=== PATIENT | male | born 1940 | race Caucasian/White ===

== ENCOUNTER 2018-03-03 23:16 | Inpatient (IN) | payer MEDICARE, OTHER ==
[2018-03-03] MEDS: SOD CHLORIDE 0.9% 1,000 ML IV (23:29)
[2018-03-03 23:35] LABS: ADD MAN DIFF? NO
[2018-03-03] MEDS ORDERED: FENTAnyl 50 MCG/ML VIAL (23:37)
[2018-03-03] MEDS ORDERED: MIDAZOLAM 1 MG/ML 2 ML INJ (23:37)
[2018-03-03] MEDS ORDERED: IODIXANOL LOCM 100 ML BTL (23:37)
[2018-03-03] MEDS ORDERED: LIDOCAINE 1% (MDV) 20 ML INJ (23:37)
[2018-03-03] MEDS ORDERED: IODIXANOL LOCM 50 ML BTL (23:37)
[2018-03-03] MEDS ORDERED: NITROGLYCERIN (IC) 100 MCG/ML INJ (23:37)
[2018-03-03] MEDS ORDERED: VERAPAMIL 5 MG INJ (23:38)
[2018-03-03 23:41] LABS: WHITE BLOOD COUNT 6.1 10^3/ul (4.8-10.8)
[2018-03-03 23:41] LABS: BASOPHILS % 0.5 % (0.0-2.0); EOSINOPHILS # 0.1 10^3/ul (0.0-0.5); EOSINOPHILS % 1.8 % (0.0-7.0); HEMATOCRIT 40.1 % (42.0-52.0); LYMPHOCYTES # 1.9 10^3/ul (0.8-2.9); LYMPHOCYTES % 31.7 % (15.0-51.0); MEAN CORPUSCULAR HEMOGLOBIN 29.1 pg (29.0-33.0); MEAN CORPUSCULAR HGB CONC 32.4 g/dl (32.0-37.0); MEAN CORPUSCULAR VOLUME 89.9 fl (82.0-101.0); MEAN PLATELET VOLUME 10.3 fl (7.4-10.4); MONOCYTE # 0.5 10^3/ul (0.3-0.9); MONOCYTES % 7.7 % (0.0-11.0); NEUTROPHIL # 3.5 10^3/ul (1.6-7.5); NEUTROPHILS % 57.8 % (39.0-77.0); PLATELET COUNT 154 10^3/UL (140-415); RED BLOOD COUNT 4.46 10^6/ul (4.70-6.10); RED CELL DISTRIBUTION WIDTH 13.6 % (11.5-14.5)
[2018-03-03] MEDS ORDERED: ONDANSETRON 4 MG INJ (23:49)
[2018-03-04] LABS: INR 1.15; PROTIME 14.9 Sec (11.9-14.9); PT RATIO 1.2
[2018-03-04 00:01] LABS: ANION GAP 16 (8-16); CARBON DIOXIDE 26 mmol/L (21-31); CHLORIDE 107 mmol/L (97-110); GLUCOSE 232 mg/dl (70-220)
[2018-03-04 00:03] LABS: BLOOD UREA NITROGEN 23 mg/dl (7-20); CALCIUM 8.6 mg/dl (8.4-10.2); CREATININE 1.03 mg/dl (0.61-1.24); POTASSIUM 3.6 mmol/L (3.5-5.1); SODIUM 145 mmol/L (135-144)
[2018-03-04 00:13] LABS: B-TYPE NATRIURETIC PEPTIDE 308 PG/ML (0-450); PARTIAL THROMBOPLASTIN TIME 69.5 Sec (25.0-35.0); TROPONIN-I 0.024 ng/ml (0.00-0.12)
[2018-03-04] MEDS ORDERED: CANGRELOR TETRASODIUM/ NS 250 50 MG (00:31)
[2018-03-04] MEDS ORDERED: IODIXANOL LOCM 100 ML BTL (00:45)
[2018-03-04] MEDS ORDERED: DOPamine-D5W 1.6 MG/ML 250 ML (00:48)
[2018-03-04] MEDS: ATORVASTATIN 80 MG TAB PO ×2 (01:00→22:05)
[2018-03-04] MEDS: SOD CHLORIDE 0.9% 1,000 ML IV ×2 (01:08→09:27)
[2018-03-04] MEDS: CANGRELOR TETRASODIUM/ NS 250 50 MG IVPB ×6 (02:30→20:32)
[2018-03-04 02:34] LABS: ADD MAN DIFF? NO
[2018-03-04 02:37] LABS: WHITE BLOOD COUNT 11.4 10^3/ul (4.8-10.8)
[2018-03-04 02:37] LABS: BASOPHILS % 0.4 % (0.0-2.0); EOSINOPHILS % 0.3 % (0.0-7.0); HEMATOCRIT 36.4 % (42.0-52.0); LYMPHOCYTES # 0.8 10^3/ul (0.8-2.9); MEAN CORPUSCULAR HEMOGLOBIN 29.3 pg (29.0-33.0); MEAN PLATELET VOLUME 10.1 fl (7.4-10.4); MONOCYTE # 0.4 10^3/ul (0.3-0.9); MONOCYTES % 3.9 % (0.0-11.0); PLATELET COUNT 183 10^3/UL (140-415); RED BLOOD COUNT 4.09 10^6/ul (4.70-6.10); RED CELL DISTRIBUTION WIDTH 13.6 % (11.5-14.5)
[2018-03-04 03:22] LABS: ANION GAP 17 (8-16); BLOOD UREA NITROGEN 22 mg/dl (7-20); CALCIUM 7.7 mg/dl (8.4-10.2); CARBON DIOXIDE 22 mmol/L (21-31); CHLORIDE 110 mmol/L (97-110); CREATININE 0.92 mg/dl (0.61-1.24); GLUCOSE 214 mg/dl (70-220); MAGNESIUM 1.7 mg/dl (1.7-2.5); SODIUM 145 mmol/L (135-144)
[2018-03-04] MEDS ORDERED: GLUCOSE GEL 15 GRAM TUBE PO ×2 (04:00)
[2018-03-04] MEDS ORDERED: DEXTROSE 50% 50 ML SYRINGE IV ×2 (04:00)
[2018-03-04] MEDS ORDERED: GLUCAGON 1 MG INJ IM (04:00)
[2018-03-04] MEDS ORDERED: GLUCOSE GEL 15 GRAM TUBE BUCCAL (04:00)
[2018-03-04 05:12] LABS: ADD MAN DIFF? NO
[2018-03-04 05:25] LABS: BASOPHILS % 0.3 % (0.0-2.0); HEMATOCRIT 36.6 % (42.0-52.0); HEMOGLOBIN 12.2 g/dl (14.0-18.0); LYMPHOCYTES # 0.7 10^3/ul (0.8-2.9); LYMPHOCYTES % 7.2 % (15.0-51.0); MEAN CORPUSCULAR HEMOGLOBIN 29.2 pg (29.0-33.0); MEAN CORPUSCULAR HGB CONC 33.3 g/dl (32.0-37.0); MEAN CORPUSCULAR VOLUME 87.6 fl (82.0-101.0); MEAN PLATELET VOLUME 10.3 fl (7.4-10.4); MONOCYTE # 0.5 10^3/ul (0.3-0.9); MONOCYTES % 4.9 % (0.0-11.0); NEUTROPHIL # 8.4 10^3/ul (1.6-7.5); NEUTROPHILS % 87.3 % (39.0-77.0); PLATELET COUNT 182 10^3/UL (140-415); RED BLOOD COUNT 4.18 10^6/ul (4.70-6.10); RED CELL DISTRIBUTION WIDTH 13.8 % (11.5-14.5)
[2018-03-04 05:25] LABS: WHITE BLOOD COUNT 9.7 10^3/ul (4.8-10.8)
[2018-03-04 05:36] LABS: HEMOGLOBIN A1C 7.5 % (0-5.9)
[2018-03-04 05:54] LABS: CREATINE KINASE 1313 IU/L (23-200)
[2018-03-04 05:59] LABS: ALANINE AMINOTRANSFERASE 65 IU/L (13-69); ALBUMIN 3.3 g/dl (3.3-4.9); ALBUMIN/GLOBULIN RATIO 1.13; ALKALINE PHOSPHATASE 109 IU/L (42-121); ANION GAP 11 (8-16); ASPARTATE AMINO TRANSFERASE 190 IU/L (15-46); BILIRUBIN,INDIRECT 0.8 mg/dl (0-1.1); BILIRUBIN,TOTAL 0.8 mg/dl (0.2-1.3); BLOOD UREA NITROGEN 20 mg/dl (7-20); CALCIUM 7.9 mg/dl (8.4-10.2); CARBON DIOXIDE 28 mmol/L (21-31); CHLORIDE 111 mmol/L (97-110); CHOL/HDL RATIO 6.2 RATIO; CHOLESTEROL 193 mg/dl (100-200); CREATININE 0.87 mg/dl (0.61-1.24); GLUCOSE 207 mg/dl (70-220); HDL CHOLESTEROL 31 mg/dl (31-75); LDL CHOLESTEROL,CALCULATED 129 mg/dl; POTASSIUM 3.9 mmol/L (3.5-5.1); SODIUM 146 mmol/L (135-144); TOTAL PROTEIN 6.2 g/dl (6.1-8.1); TRIGLYCERIDES 166 mg/dl (0-149)
[2018-03-04 06:06] LABS: CK INDEX 4.9
[2018-03-04 06:25] LABS: THYROID STIMULATING HORMONE 0.666 MIU/L (0.465-4.680)
[2018-03-04] MEDS: INSULIN ASPART [NOVOLOG] 3 ML PEN SC ×4 (09:24→22:07)
[2018-03-04] MEDS: MAGNESIUM SULFATE 2 GM/50 ML 50 ML IVPB (09:26)
[2018-03-04] MEDS: LOSARTAN 25 MG TAB PO ×2 (09:30→21:00)
[2018-03-04] MEDS: ASPIRIN (EC) 81 MG TAB PO (09:30)
[2018-03-04 13:53] LABS: CREATINE KINASE 2743 IU/L (23-200)
[2018-03-04] MEDS: FUROSEMIDE 20 MG INJ IV ×2 (14:19→17:59)
[2018-03-04] MEDS: INSULIN GLARGINE [LANtus] 3 ML PEN SC (20:27)
[2018-03-05] MEDS: ACCU-CHEK XX (01:32)
[2018-03-05 06:05] LABS: ADD MAN DIFF? NO; BASOPHILS % 0.3 % (0.0-2.0); HEMATOCRIT 36.2 % (42.0-52.0); HEMOGLOBIN 12.2 g/dl (14.0-18.0); LYMPHOCYTES # 0.9 10^3/ul (0.8-2.9); LYMPHOCYTES % 7.3 % (15.0-51.0); MEAN CORPUSCULAR HEMOGLOBIN 29.2 pg (29.0-33.0); MEAN CORPUSCULAR HGB CONC 33.7 g/dl (32.0-37.0); MEAN CORPUSCULAR VOLUME 86.6 fl (82.0-101.0); MEAN PLATELET VOLUME 10.7 fl (7.4-10.4); MONOCYTE # 1.2 10^3/ul (0.3-0.9); MONOCYTES % 9.2 % (0.0-11.0); NEUTROPHIL # 10.7 10^3/ul (1.6-7.5); NEUTROPHILS % 82.8 % (39.0-77.0); PLATELET COUNT 180 10^3/UL (140-415); RED BLOOD COUNT 4.18 10^6/ul (4.70-6.10); RED CELL DISTRIBUTION WIDTH 14.1 % (11.5-14.5)
[2018-03-05 06:06] LABS: ANION GAP 10 (8-16); BLOOD UREA NITROGEN 23 mg/dl (7-20); CALCIUM 8.1 mg/dl (8.4-10.2); CARBON DIOXIDE 30 mmol/L (21-31); CHLORIDE 107 mmol/L (97-110); CREATININE 1.18 mg/dl (0.61-1.24); GLUCOSE 164 mg/dl (70-220); POTASSIUM 3.2 mmol/L (3.5-5.1); SODIUM 144 mmol/L (135-144)
[2018-03-05] MEDS: FUROSEMIDE 20 MG INJ IV ×2 (06:44→17:43)
[2018-03-05] MEDS: CANGRELOR TETRASODIUM/ NS 250 50 MG IVPB ×3 (08:11→20:45)
[2018-03-05] MEDS: INSULIN ASPART [NOVOLOG] 3 ML PEN SC ×4 (08:31→20:28)
[2018-03-05] MEDS: LOSARTAN 25 MG TAB PO (09:00)
[2018-03-05] MEDS: ASPIRIN (EC) 81 MG TAB PO (09:08)
[2018-03-05] MEDS: FAMOTIDINE 20 MG TAB PO (11:56)
[2018-03-05] MEDS: POTASSIUM CHLORIDE 50 ML IVPB ×3 (11:56→17:40)
[2018-03-05] MEDS: METOPROLOL (XL) 25 MG TAB PO (11:57)
[2018-03-05] MEDS: ATORVASTATIN 80 MG TAB PO (20:26)
[2018-03-05] MEDS: INSULIN GLARGINE [LANtus] 3 ML PEN SC (20:32)
[2018-03-06] MEDS: ACCU-CHEK XX (01:50)
[2018-03-06] MEDS: SOD CHLORIDE 0.9% 250 ML IV (02:34)
[2018-03-06 05:20] LABS: ADD MAN DIFF? NO
[2018-03-06 05:23] LABS: WHITE BLOOD COUNT 13.1 10^3/ul (4.8-10.8)
[2018-03-06 05:23] LABS: BASOPHILS % 0.2 % (0.0-2.0); EOSINOPHILS % 0.1 % (0.0-7.0); HEMATOCRIT 35.7 % (42.0-52.0); LYMPHOCYTES # 1.1 10^3/ul (0.8-2.9); LYMPHOCYTES % 8.3 % (15.0-51.0); MEAN CORPUSCULAR HEMOGLOBIN 29.6 pg (29.0-33.0); MEAN CORPUSCULAR HGB CONC 33.6 g/dl (32.0-37.0); MEAN CORPUSCULAR VOLUME 87.9 fl (82.0-101.0); MEAN PLATELET VOLUME 10.8 fl (7.4-10.4); MONOCYTE # 1.3 10^3/ul (0.3-0.9); MONOCYTES % 9.7 % (0.0-11.0); NEUTROPHIL # 10.6 10^3/ul (1.6-7.5); NEUTROPHILS % 81.3 % (39.0-77.0); PLATELET COUNT 160 10^3/UL (140-415); RED BLOOD COUNT 4.06 10^6/ul (4.70-6.10); RED CELL DISTRIBUTION WIDTH 14.4 % (11.5-14.5)
[2018-03-06] MEDS: FUROSEMIDE 20 MG INJ IV ×2 (06:00→18:53)
[2018-03-06 06:11] LABS: ANION GAP 12 (8-16); BLOOD UREA NITROGEN 32 mg/dl (7-20); CALCIUM 7.8 mg/dl (8.4-10.2); CARBON DIOXIDE 30 mmol/L (21-31); CHLORIDE 106 mmol/L (97-110); CREATININE 1.15 mg/dl (0.61-1.24); GLUCOSE 128 mg/dl (70-220); POTASSIUM 3.8 mmol/L (3.5-5.1); SODIUM 144 mmol/L (135-144)
[2018-03-06] MEDS: CANGRELOR TETRASODIUM/ NS 250 50 MG IVPB ×2 (07:26→17:00)
[2018-03-06] MEDS: INSULIN ASPART [NOVOLOG] 3 ML PEN SC ×4 (07:35→21:00)
[2018-03-06] MEDS: ASPIRIN (EC) 81 MG TAB PO (08:25)
[2018-03-06] MEDS: FAMOTIDINE 20 MG TAB PO (08:26)
[2018-03-06] MEDS: METOPROLOL (XL) 25 MG TAB PO (08:26)
[2018-03-06] MEDS: LOSARTAN 25 MG TAB PO (09:00)
[2018-03-06] MEDS: INSULIN GLARGINE [LANtus] 3 ML PEN SC (20:09)
[2018-03-06] MEDS: ATORVASTATIN 80 MG TAB PO (21:09)
[2018-03-07] MEDS: ACCU-CHEK XX ×6 (02:12→23:55)
[2018-03-07] MEDS: CANGRELOR TETRASODIUM/ NS 250 50 MG IVPB (03:13)
[2018-03-07] MEDS: DEXTROSE 5%-0.45% NACL 1,000 ML IV ×2 (05:05→16:52)
[2018-03-07 05:29] LABS: ADD MAN DIFF? NO
[2018-03-07] MEDS: FUROSEMIDE 20 MG INJ IV ×2 (05:38→18:00)
[2018-03-07 05:48] LABS: BASOPHILS % 0.4 % (0.0-2.0); EOSINOPHILS % 0.2 % (0.0-7.0); HEMATOCRIT 33.8 % (42.0-52.0); HEMOGLOBIN 11.4 g/dl (14.0-18.0); LYMPHOCYTES % 10.8 % (15.0-51.0); MEAN CORPUSCULAR HEMOGLOBIN 29.5 pg (29.0-33.0); MEAN CORPUSCULAR HGB CONC 33.7 g/dl (32.0-37.0); MEAN CORPUSCULAR VOLUME 87.3 fl (82.0-101.0); MEAN PLATELET VOLUME 10.8 fl (7.4-10.4); MONOCYTE # 0.8 10^3/ul (0.3-0.9); MONOCYTES % 9.3 % (0.0-11.0); NEUTROPHILS % 78.7 % (39.0-77.0); PLATELET COUNT 155 10^3/UL (140-415); RED BLOOD COUNT 3.87 10^6/ul (4.70-6.10); RED CELL DISTRIBUTION WIDTH 14.1 % (11.5-14.5)
[2018-03-07 06:14] LABS: ANION GAP 10 (8-16); BLOOD UREA NITROGEN 31 mg/dl (7-20); CALCIUM 7.5 mg/dl (8.4-10.2); CARBON DIOXIDE 29 mmol/L (21-31); CHLORIDE 105 mmol/L (97-110); CREATININE 1.19 mg/dl (0.61-1.24); GLUCOSE 120 mg/dl (70-220); POTASSIUM 3.1 mmol/L (3.5-5.1); SODIUM 141 mmol/L (135-144)
[2018-03-07] MEDS: POTASSIUM CHLORIDE 50 ML IVPB ×6 (06:31→22:15)
[2018-03-07] MEDS: INSULIN ASPART [NOVOLOG] 3 ML PEN SC ×3 (07:35→16:50)
[2018-03-07] MEDS: ASPIRIN (EC) 81 MG TAB PO (08:34)
[2018-03-07] MEDS: FAMOTIDINE 20 MG TAB PO (08:34)
[2018-03-07] MEDS: LOSARTAN 25 MG TAB PO (08:34)
[2018-03-07] MEDS: METOPROLOL (XL) 25 MG TAB PO (08:45)
[2018-03-07] MEDS ORDERED: MIDAZOLAM 5 ML ×2 (12:48→15:18)
[2018-03-07] MEDS ORDERED: EPINEPHrine 4 MG in DEXTROSE 5% 246 ML IV (13:00)
[2018-03-07] MEDS ORDERED: PHENYLephrine 20MG IN 250 ML 250 ML IV ×2 (13:00→20:00)
[2018-03-07] MEDS ORDERED: INSULIN HUMAN REGULAR 100 UNIT in SOD CHLORIDE 0.9% 99 ML IV (13:00)
[2018-03-07] MEDS ORDERED: PHENYLephrine (100 MCG/ML) 5ML SYG ×3 (13:25→18:53)
[2018-03-07] MEDS ORDERED: LIDOCAINE 100 MG SYRINGE ×2 (13:54→19:10)
[2018-03-07] MEDS ORDERED: PHENYLephrine 10 MG INJ (13:54)
[2018-03-07] MEDS ORDERED: MAGNESIUM SULFATE (MG) 50% 10 ML INJ (13:54)
[2018-03-07] MEDS ORDERED: FUROSEMIDE 20 MG INJ ×2 (13:54→16:26)
[2018-03-07] MEDS: VANCOMYCIN 1 GM INJ (13:54)
[2018-03-07] MEDS ORDERED: MANNITOL 20% 250 ML IV (13:54)
[2018-03-07] MEDS ORDERED: ALBUMIN HUMAN 25% 200 ML (13:54)
[2018-03-07] MEDS ORDERED: NA BICARBONATE 8.4% 50 ML SYG (13:54)
[2018-03-07] MEDS: HEPARIN 1000 UNITS/ML 10 ML INJ (13:54)
[2018-03-07] MEDS ORDERED: POTASSIUM CHLORIDE 40 MEQ INJ (13:54)
[2018-03-07] MEDS: PAPAVERINE 60 MG INJ (13:54)
[2018-03-07] MEDS ORDERED: SODIUM CL BACTERIOSTATIC 30 ML INJ (14:04)
[2018-03-07] MEDS ORDERED: HEPARIN 1000 UNITS/ML 10 ML INJ ×2 (14:04→14:42)
[2018-03-07] MEDS ORDERED: CEFAZOLIN 1 GM INJ ×2 (14:08→16:28)
[2018-03-07] MEDS ORDERED: HEPARIN 10,000 UNITS/ML 1 ML INJ (16:05)
[2018-03-07] MEDS ORDERED: PROTAMINE 250 MG INJ (16:34)
[2018-03-07] MEDS ORDERED: ROCURONIUM 50 MG INJ ×2 (16:35→18:56)
[2018-03-07] MEDS ORDERED: ETOMIDATE 20 MG INJ (16:35)
[2018-03-07] MEDS ORDERED: LIDOCAINE 2% (SDV) 5 ML INJ (16:35)
[2018-03-07 17:13] LABS: IMMEDIATE SPIN CROSSMATCH 1 6
[2018-03-07 17:13] LABS: IMMEDIATE SPIN CROSSMATCH 1; TYPE AND SCREEN 1
[2018-03-07] MEDS ORDERED: GELATIN SIZE 100 SPONGE (17:22)
[2018-03-07] MEDS ORDERED: THROMBIN 5000 UNIT VIAL (17:23)
[2018-03-07] MEDS ORDERED: OXYCODONE/ACETAMINOPHEN (5/325) TAB PO ×2 (18:30)
[2018-03-07] MEDS ORDERED: MAGNESIUM SULFATE 1 GM/D5W 100 ML IVPB (18:30)
[2018-03-07] MEDS ORDERED: DIPHENHYDRAMINE 50 MG INJ (18:59)
[2018-03-07] MEDS ORDERED: LIDOCAINE 2 GM/D5W 500 ML (19:13)
[2018-03-07] MEDS ORDERED: AMIODARONE 150MG/D5W BOLUS 100 ML (19:18)
[2018-03-07 19:21] LABS: ADD MAN DIFF? NO
[2018-03-07 19:22] LABS: BASOPHILS % 0.2 % (0.0-2.0); EOSINOPHILS % 0.5 % (0.0-7.0); HEMOGLOBIN 10.4 g/dl (14.0-18.0); LYMPHOCYTES # 1.1 10^3/ul (0.8-2.9); LYMPHOCYTES % 13.5 % (15.0-51.0); MEAN CORPUSCULAR HEMOGLOBIN 29.1 pg (29.0-33.0); MEAN CORPUSCULAR HGB CONC 33.5 g/dl (32.0-37.0); MEAN CORPUSCULAR VOLUME 86.6 fl (82.0-101.0); MEAN PLATELET VOLUME 9.8 fl (7.4-10.4); MONOCYTE # 0.7 10^3/ul (0.3-0.9); MONOCYTES % 8.8 % (0.0-11.0); NEUTROPHIL # 6.2 10^3/ul (1.6-7.5); NEUTROPHILS % 76.1 % (39.0-77.0); PLATELET COUNT 125 10^3/UL (140-415); RED BLOOD COUNT 3.58 10^6/ul (4.70-6.10); RED CELL DISTRIBUTION WIDTH 14.9 % (11.5-14.5)
[2018-03-07 19:22] LABS: WHITE BLOOD COUNT 8.2 10^3/ul (4.8-10.8)
[2018-03-07] MEDS ORDERED: PROPOFOL 100 ML (19:23)
[2018-03-07 19:27] LABS: AADO2 Arterial 363.1 mmHg (7.0-24.0); Arterial Base Excess -2.9 mmol/L (-3.0-3); Arterial Blood Gas Oxygen Sat 96.5 mmHG (95.0-100.0); Arterial COHb 0.3 % (0.0-3.0); Arterial Fraction of Oxyhgb 95.9 % (93.0-99.0); Arterial HCO3 21.9 mmol/L (22.0-26.0); Arterial MetHb 0.3 % (0.0-1.5); Arterial Total Hemglobin 11.9 g/dl (12.0-18.0); Arterial pCO2 38.3 mmhg (35-45); MODE VENT - AC; Site A-Line
[2018-03-07] MEDS: LIDOCAINE 2 GM/D5W 500 ML IV ×2 (19:30→19:51)
[2018-03-07] MEDS ORDERED: LIDOCAINE 2% (MDV) 20 ML INJ INJ (19:30)
[2018-03-07 19:39] LABS: ANION GAP 16 (8-16); BLOOD UREA NITROGEN 21 mg/dl (7-20); CALCIUM 7.7 mg/dl (8.4-10.2); CARBON DIOXIDE 24 mmol/L (21-31); CHLORIDE 108 mmol/L (97-110); CREATININE 0.96 mg/dl (0.61-1.24); GLUCOSE 121 mg/dl (70-220); MAGNESIUM 2.7 mg/dl (1.7-2.5); POTASSIUM 3.6 mmol/L (3.5-5.1); SODIUM 144 mmol/L (135-144)
[2018-03-07 19:41] LABS: INR 1.49; PROTIME 18.3 Sec (11.9-14.9); PT RATIO 1.4
[2018-03-07 19:42] LABS: PARTIAL THROMBOPLASTIN TIME 36.8 Sec (25.0-35.0)
[2018-03-07 19:45] LABS: MODE VENT - AC; MetHgb Mixed Venous 0.3 %; Mixed Venous COHb 0.3 %; Mixed Venous Fraction OxyHgb 78.3 %; Mixed Venous Oxygen Sat 78.8 mmHG (65.0-75.0); Mixed Venous Total Hemglobin 11.3 g/dl; Sample Type BLMV; Site VENOUS LINE
[2018-03-07] MEDS: NITROGLYCERIN 50 MG/D5W (PMX) 250 ML IV (19:49)
[2018-03-07] MEDS: MILRINONE LACTATE 100 ML IV (19:50)
[2018-03-07] MEDS: PROPOFOL 100 ML IV (19:50)
[2018-03-07] MEDS: LIDOCAINE 100 MG SYRINGE IV (19:54)
[2018-03-07] MEDS ORDERED: NITROGLYCERIN 50 MG/D5W (PMX) 250 ML IV (20:00)
[2018-03-07] MEDS ORDERED: DOPamine-D5W 1.6 MG/ML 250 ML IV (20:00)
[2018-03-07] MEDS: POTASSIUM CHLORIDE 40 MEQ, CALCIUM CHLORIDE 10% 1 GM in DEXTROSE 5%-0.225% NACL 1,000 ML IV (20:24)
[2018-03-07] MEDS: INSULIN HUMAN REGULAR 100 UNIT in SOD CHLORIDE 0.9% 99 ML IV (20:30)
[2018-03-07] MEDS ORDERED: DEXTROSE 50% 50 ML SYRINGE IV ×2 (20:30)
[2018-03-07] MEDS: DOPamine-D5W 1.6 MG/ML 250 ML IV (21:07)
[2018-03-08] MEDS: PHENYLephrine 20MG IN 250 ML 250 ML IV ×5 (00:33→18:46)
[2018-03-08] MEDS: PROPOFOL 100 ML IV ×5 (00:36→23:30)
[2018-03-08] MEDS: ACCU-CHEK XX ×23 (00:55→23:12)
[2018-03-08 01:10] LABS: POTASSIUM 3.5 mmol/L (3.5-5.1)
[2018-03-08] MEDS: ALBUMIN HUMAN 5% 250 ML IV ×2 (02:32→08:00)
[2018-03-08] MEDS: POTASSIUM CHLORIDE 50 ML IVPB ×3 (03:09→05:31)
[2018-03-08 03:10] LABS: MODE VENT - AC; MetHgb Mixed Venous 0.5 %; Mixed Venous Base Excess 0.1 mmol/L; Mixed Venous COHb 0.3 %; Mixed Venous Fraction OxyHgb 82.4 %; Mixed Venous Oxygen Sat 83.1 mmHG (65.0-75.0); Mixed Venous Total Hemglobin 11.4 g/dl; Sample Type Blood venous; Site PUL ART LINE
[2018-03-08] MEDS: MILRINONE LACTATE 100 ML IV ×3 (03:19→23:07)
[2018-03-08 04:55] LABS: AADO2 Arterial 323.8 mmHg (7.0-24.0); Arterial Base Excess 0.5 mmol/L (-3.0-3); Arterial Blood Gas Oxygen Sat 98.5 mmHG (95.0-100.0); Arterial COHb 0.3 % (0.0-3.0); Arterial Fraction of Oxyhgb 97.8 % (93.0-99.0); Arterial HCO3 24.1 mmol/L (22.0-26.0); Arterial MetHb 0.4 % (0.0-1.5); Arterial Total Hemglobin 13.8 g/dl (12.0-18.0); Arterial pCO2 35.6 mmhg (35-45); MODE VENT - AC; Site A-Line
[2018-03-08 05:46] LABS: WHITE BLOOD COUNT 8.2 10^3/ul (4.8-10.8)
[2018-03-08 05:46] LABS: HEMATOCRIT 29.7 % (42.0-52.0); HEMOGLOBIN 10.2 g/dl (14.0-18.0); MEAN CORPUSCULAR HEMOGLOBIN 29.3 pg (29.0-33.0); MEAN CORPUSCULAR HGB CONC 34.3 g/dl (32.0-37.0); MEAN CORPUSCULAR VOLUME 85.3 fl (82.0-101.0); MEAN PLATELET VOLUME 11.1 fl (7.4-10.4); PLATELET COUNT 158 10^3/UL (140-415); POSITIVE DIFF @See below; RED BLOOD COUNT 3.48 10^6/ul (4.70-6.10); RED CELL DISTRIBUTION WIDTH 15.6 % (11.5-14.5)
[2018-03-08 05:49] LABS: ADD MAN DIFF? YES
[2018-03-08] MEDS: FUROSEMIDE 20 MG INJ IV ×2 (06:04→17:42)
[2018-03-08 06:12] LABS: INR 1.35; PROTIME 16.9 Sec (11.9-14.9); PT RATIO 1.3
[2018-03-08 06:27] LABS: ANION GAP 13 (8-16); BLOOD UREA NITROGEN 20 mg/dl (7-20); CALCIUM 7.9 mg/dl (8.4-10.2); CARBON DIOXIDE 26 mmol/L (21-31); CHLORIDE 108 mmol/L (97-110); CREATININE 1.11 mg/dl (0.61-1.24); GLUCOSE 111 mg/dl (70-220); MAGNESIUM 2.4 mg/dl (1.7-2.5); POTASSIUM 3.8 mmol/L (3.5-5.1); SODIUM 143 mmol/L (135-144)
[2018-03-08] MEDS ORDERED: TRANEXAMIC ACID 1,000 MG/10 ML VIAL (07:00)
[2018-03-08 08:05] LABS: BAND NEUTROPHILS #M 0.8 10^3/ul (0.0-0.6); BAND NEUTROPHILS % (M) 10 % (0-4); EOSINOPHILS % (M) 3 % (0-7); GIANT THROMBO% (M) 1 % (0-0); LYMPHOCYTES #M 0.9 10^3/ul (0.8-2.9); LYMPHOCYTES % (M) 11 % (15-51); MONOCYTE #M 0.4 10^3/ul (0.3-0.9); MONOCYTES % (M) 5 % (0-11); PLATELET ESTIMATE NORMAL; SEG NEUT #M 5.9 10^3/ul (1.6-7.5); SEGMENTED NEUTROPHILS (M) % 71 % (39-77); SMUDGE%M 7 % (0-0)
[2018-03-08] MEDS: LOSARTAN 25 MG TAB PO (09:00)
[2018-03-08] MEDS: METOPROLOL (XL) 25 MG TAB PO (09:00)
[2018-03-08] MEDS ORDERED: ASPIRIN 325 MG TAB PO (09:00)
[2018-03-08] MEDS: ASPIRIN 300 MG SUPP PR (09:18)
[2018-03-08 09:41] LABS: POTASSIUM 4.2 mmol/L (3.5-5.1)
[2018-03-08] MEDS: ACETAMINOPHEN 650 MG SUPP PR (10:41)
[2018-03-08] MEDS: POTASSIUM CHLORIDE 40 MEQ, CALCIUM CHLORIDE 10% 1 GM in DEXTROSE 5%-0.225% NACL 1,000 ML IV (11:15)
[2018-03-08] MEDS: ACETAMINOPHEN 1000MG/100ML IV 100 ML IVPB (14:10)
[2018-03-08] MEDS ORDERED: ACETAMINOPHEN 1000MG/100ML IV 100 ML IVPB (14:30)
[2018-03-08 18:39] LABS: HEMATOCRIT 32.5 % (42.0-52.0)
[2018-03-08] MEDS: INSULIN HUMAN REGULAR 100 UNIT in SOD CHLORIDE 0.9% 99 ML IV (21:49)
[2018-03-09] MEDS: ACCU-CHEK XX ×24 (00:02→22:55)
[2018-03-09] MEDS: PHENYLephrine 20MG IN 250 ML 250 ML IV ×4 (00:13→14:00)
[2018-03-09] MEDS: ACETAMINOPHEN 1000MG/100ML IV 100 ML IVPB (01:53)
[2018-03-09] MEDS: AMIODARONE 150MG/D5W BOLUS 100 ML IV (03:26)
[2018-03-09] MEDS: AMIODARONE 900 MG in DEXTROSE 5% 482 ML IV (04:04)
[2018-03-09] MEDS: POTASSIUM CHLORIDE 40 MEQ, CALCIUM CHLORIDE 10% 1 GM in DEXTROSE 5%-0.225% NACL 1,000 ML IV ×2 (04:52→22:04)
[2018-03-09] MEDS: DOPamine-D5W 1.6 MG/ML 250 ML IV (04:55)
[2018-03-09 05:16] LABS: WHITE BLOOD COUNT 12.4 10^3/ul (4.8-10.8)
[2018-03-09 05:16] LABS: ABNORMAL IP MESSAGE 1; HEMATOCRIT 29.2 % (42.0-52.0); HEMOGLOBIN 9.9 g/dl (14.0-18.0); MEAN CORPUSCULAR HEMOGLOBIN 29.6 pg (29.0-33.0); MEAN CORPUSCULAR HGB CONC 33.9 g/dl (32.0-37.0); MEAN CORPUSCULAR VOLUME 87.4 fl (82.0-101.0); MEAN PLATELET VOLUME 11.6 fl (7.4-10.4); PLATELET COUNT 90 10^3/UL (140-415); POSITIVE DIFF @See below; RED BLOOD COUNT 3.34 10^6/ul (4.70-6.10); RED CELL DISTRIBUTION WIDTH 15.7 % (11.5-14.5)
[2018-03-09] MEDS: FUROSEMIDE 20 MG INJ IV ×2 (05:22→18:53)
[2018-03-09 05:26] LABS: ADD MAN DIFF? YES
[2018-03-09] MEDS: PROPOFOL 100 ML IV (06:20)
[2018-03-09 06:36] LABS: ANISOCYTOSIS 1+ (0-0); BAND NEUTROPHILS #M 0.9 10^3/ul (0.0-0.6); BAND NEUTROPHILS % (M) 8 % (0-4); BURR CELLS 1+ (0-0); LYMPHOCYTES #M 1.4 10^3/ul (0.8-2.9); LYMPHOCYTES % (M) 12 % (15-51); MONOCYTE #M 1.1 10^3/ul (0.3-0.9); MONOCYTES % (M) 9 % (0-11); MYELOCYTES #M 0.1 10^3/ul (0.0-0.0); MYELOCYTES % (M) 1 % (0-0); PLATELET ESTIMATE DECREASED; POIKILOCYTOSIS 1+ (0-0); REACTIVE LYMPHOCYTES #M 0.2 10^3/ul (0.0-0.0); REACTIVE LYMPHOCYTES% (M) 2 % (0-0); SEG NEUT #M 8.5 10^3/ul (1.6-7.5); SEGMENTED NEUTROPHILS (M) % 68 % (39-77); SMUDGE%M 7 % (0-0)
[2018-03-09 06:54] LABS: ANION GAP 13 (8-16); BLOOD UREA NITROGEN 17 mg/dl (7-20); CALCIUM 8.1 mg/dl (8.4-10.2); CARBON DIOXIDE 27 mmol/L (21-31); CHLORIDE 104 mmol/L (97-110); CREATININE 1.23 mg/dl (0.61-1.24); GLUCOSE 143 mg/dl (70-220); POTASSIUM 3.9 mmol/L (3.5-5.1); SODIUM 140 mmol/L (135-144)
[2018-03-09 07:19] LABS: MAGNESIUM 2.1 mg/dl (1.7-2.5)
[2018-03-09] MEDS: POTASSIUM CHLORIDE 50 ML IVPB ×2 (08:30→09:45)
[2018-03-09] MEDS: CLOPIDOGREL 75 MG TAB PO (08:37)
[2018-03-09] MEDS: METOPROLOL (XL) 25 MG TAB PO (08:38)
[2018-03-09] MEDS ORDERED: FAMOTIDINE 20 MG INJ IV (09:00)
[2018-03-09] MEDS: LOSARTAN 25 MG TAB PO (09:00)
[2018-03-09] MEDS: MILRINONE LACTATE 100 ML IV ×2 (09:08→19:47)
[2018-03-09] MEDS: ASPIRIN 325 MG TAB NGT (09:17)
[2018-03-09] MEDS: FAMOTIDINE 20 MG TAB NGT (09:18)
[2018-03-09] MEDS: ALBUMIN HUMAN 5% 250 ML IV (12:15)
[2018-03-09] MEDS: HYDROmorphONE 0.5 MG/0.5 ML SYG IV ×2 (14:25→20:02)
[2018-03-09 20:02] LABS: AADO2 Arterial 157.9 mmHg (7.0-24.0); Arterial Base Excess -5.1 mmol/L (-3.0-3); Arterial Blood Gas Oxygen Sat 96.5 mmHG (95.0-100.0); Arterial COHb 0.3 % (0.0-3.0); Arterial Fraction of Oxyhgb 95.7 % (93.0-99.0); Arterial HCO3 18.7 mmol/L (22.0-26.0); Arterial MetHb 0.5 % (0.0-1.5); Arterial Total Hemglobin 7.4 g/dl (12.0-18.0); Arterial pCO2 29.4 mmhg (35-45); Blood Gas PS 10; MODE VENT - CPAP; Site A-Line
[2018-03-10] MEDS: ACCU-CHEK XX ×15 (00:09→13:19)
[2018-03-10 00:22] LABS: Arterial Base Excess -2.7 mmol/L (-3.0-3); Arterial Blood Gas Oxygen Sat 96.2 mmHG (95.0-100.0); Arterial COHb 0.3 % (0.0-3.0); Arterial Fraction of Oxyhgb 95.7 % (93.0-99.0); Arterial HCO3 20.8 mmol/L (22.0-26.0); Arterial MetHb 0.2 % (0.0-1.5); Arterial Total Hemglobin 11.1 g/dl (12.0-18.0); Arterial pCO2 31.5 mmhg (35-45); MODE MASK - NRB; Site A-Line
[2018-03-10] MEDS: HYDROmorphONE 0.5 MG/0.5 ML SYG IV (01:00)
[2018-03-10] MEDS: INSULIN HUMAN REGULAR 100 UNIT in SOD CHLORIDE 0.9% 99 ML IV (04:16)
[2018-03-10 04:50] LABS: ADD MAN DIFF? NO
[2018-03-10 04:55] LABS: WHITE BLOOD COUNT 11.7 10^3/ul (4.8-10.8)
[2018-03-10 04:55] LABS: BASOPHILS % 0.3 % (0.0-2.0); EOSINOPHILS % 0.3 % (0.0-7.0); HEMATOCRIT 28.2 % (42.0-52.0); HEMOGLOBIN 9.3 g/dl (14.0-18.0); LYMPHOCYTES # 0.6 10^3/ul (0.8-2.9); LYMPHOCYTES % 5.1 % (15.0-51.0); MEAN CORPUSCULAR HEMOGLOBIN 28.6 pg (29.0-33.0); MEAN CORPUSCULAR VOLUME 86.8 fl (82.0-101.0); MEAN PLATELET VOLUME 11.4 fl (7.4-10.4); MONOCYTE # 1.2 10^3/ul (0.3-0.9); MONOCYTES % 10.1 % (0.0-11.0); NEUTROPHIL # 9.7 10^3/ul (1.6-7.5); NEUTROPHILS % 82.4 % (39.0-77.0); PLATELET COUNT 102 10^3/UL (140-415); POSITIVE DIFF @See below; RED BLOOD COUNT 3.25 10^6/ul (4.70-6.10); RED CELL DISTRIBUTION WIDTH 15.4 % (11.5-14.5)
[2018-03-10 05:21] LABS: ANION GAP 14 (8-16); BLOOD UREA NITROGEN 23 mg/dl (7-20); CALCIUM 8.4 mg/dl (8.4-10.2); CARBON DIOXIDE 25 mmol/L (21-31); CHLORIDE 105 mmol/L (97-110); CREATININE 1.43 mg/dl (0.61-1.24); GLUCOSE 142 mg/dl (70-220); POTASSIUM 4.5 mmol/L (3.5-5.1); SODIUM 139 mmol/L (135-144)
[2018-03-10] MEDS: POTASSIUM CHLORIDE 50 ML IVPB (05:56)
[2018-03-10] MEDS: FUROSEMIDE 20 MG INJ IV ×2 (05:56→18:35)
[2018-03-10] MEDS: PROPOFOL 100 ML IV ×2 (06:36→19:30)
[2018-03-10] MEDS: ASPIRIN 81 MG TAB PO (09:16)
[2018-03-10] MEDS: LOSARTAN 25 MG TAB PO (09:17)
[2018-03-10] MEDS: FAMOTIDINE 20 MG TAB NGT (09:17)
[2018-03-10] MEDS: AMIODARONE 200 MG TAB PO ×2 (09:17→20:42)
[2018-03-10] MEDS: CLOPIDOGREL 75 MG TAB PO (09:17)
[2018-03-10] MEDS: METOPROLOL (XL) 50 MG TAB PO (10:46)
[2018-03-10] MEDS: CEPASTAT LOZENGE MT ×2 (10:50→14:33)
[2018-03-10] MEDS ORDERED: INSULIN ASPART [NOVOLOG] 3 ML PEN SC (17:00)
[2018-03-10] MEDS: INSULIN ASPART [NOVOLOG] 3 ML PEN SC ×2 (17:31→20:43)
[2018-03-10] MEDS: POTASSIUM CHLORIDE 40 MEQ, CALCIUM CHLORIDE 10% 1 GM in DEXTROSE 5%-0.225% NACL 1,000 ML IV (18:10)
[2018-03-10] MEDS ORDERED: INSULIN GLARGINE [LANtus] 3 ML PEN SC (20:00)
[2018-03-10] MEDS: INSULIN GLARGINE [LANtus] 3 ML PEN SC (20:45)
[2018-03-11] MEDS: ACCU-CHEK XX ×2 (02:52→22:14)
[2018-03-11] MEDS: FUROSEMIDE 20 MG INJ IV ×2 (06:09→17:28)
[2018-03-11] MEDS: PROPOFOL 100 ML IV (07:30)
[2018-03-11] MEDS: INSULIN ASPART [NOVOLOG] 3 ML PEN SC ×4 (08:59→21:00)
[2018-03-11] MEDS: AMIODARONE 200 MG TAB PO ×2 (09:01→20:22)
[2018-03-11] MEDS: ASPIRIN 81 MG TAB PO (09:01)
[2018-03-11] MEDS: FAMOTIDINE 20 MG TAB NGT (09:01)
[2018-03-11] MEDS: CLOPIDOGREL 75 MG TAB PO (09:01)
[2018-03-11] MEDS: LOSARTAN 25 MG TAB PO (09:04)
[2018-03-11] MEDS: METOPROLOL (XL) 50 MG TAB PO (09:04)
[2018-03-11] MEDS: INSULIN GLARGINE [LANtus] 3 ML PEN SC (20:00)
[2018-03-12] MEDS: FUROSEMIDE 20 MG INJ IV (06:35)
[2018-03-12 07:45] LABS: ANION GAP 16 (8-16); BLOOD UREA NITROGEN 54 mg/dl (7-20); CALCIUM 8.3 mg/dl (8.4-10.2); CARBON DIOXIDE 27 mmol/L (21-31); CHLORIDE 103 mmol/L (97-110); CREATININE 1.64 mg/dl (0.61-1.24); GLUCOSE 144 mg/dl (70-220); MAGNESIUM 2.3 mg/dl (1.7-2.5); PHOSPHORUS 3.8 mg/dl (2.5-4.9); POTASSIUM 3.8 mmol/L (3.5-5.1); SODIUM 142 mmol/L (135-144)
[2018-03-12] MEDS: INSULIN ASPART [NOVOLOG] 3 ML PEN SC ×4 (08:00→21:00)
[2018-03-12] MEDS: CLOPIDOGREL 75 MG TAB PO (09:03)
[2018-03-12] MEDS: ASPIRIN 81 MG TAB PO (09:03)
[2018-03-12] MEDS: LINAGLIPTIN 5 MG TABLET PO (09:03)
[2018-03-12] MEDS: AMIODARONE 200 MG TAB PO ×2 (09:04→21:00)
[2018-03-12] MEDS: METOPROLOL (XL) 50 MG TAB PO (09:05)
[2018-03-12] MEDS: LOSARTAN 25 MG TAB PO (10:43)
[2018-03-12] MEDS: ATORVASTATIN 80 MG TAB PO (21:12)
[2018-03-12] MEDS: INSULIN GLARGINE [LANtus] 3 ML PEN SC (21:13)
[2018-03-13] MEDS: ACCU-CHEK XX (02:00)
[2018-03-13] MEDS: INSULIN ASPART [NOVOLOG] 3 ML PEN SC ×4 (08:00→20:38)
[2018-03-13] MEDS: CLOPIDOGREL 75 MG TAB PO (08:34)
[2018-03-13] MEDS: AMIODARONE 200 MG TAB PO ×2 (08:34→20:26)
[2018-03-13] MEDS: ASPIRIN 81 MG TAB PO (08:35)
[2018-03-13] MEDS: LINAGLIPTIN 5 MG TABLET PO (08:35)
[2018-03-13] MEDS: METOPROLOL (XL) 50 MG TAB PO (08:35)
[2018-03-13] MEDS: LOSARTAN 25 MG TAB PO (08:36)
[2018-03-13] MEDS: ATORVASTATIN 80 MG TAB PO (20:30)
[2018-03-13] MEDS: INSULIN GLARGINE [LANtus] 3 ML PEN SC (20:57)
[2018-03-14] MEDS: ACCU-CHEK XX (00:59)
[2018-03-14] MEDS: INSULIN ASPART [NOVOLOG] 3 ML PEN SC ×4 (08:00→20:37)
[2018-03-14] MEDS: METOPROLOL (XL) 50 MG TAB PO (08:38)
[2018-03-14] MEDS: ASPIRIN 81 MG TAB PO (08:38)
[2018-03-14] MEDS: CLOPIDOGREL 75 MG TAB PO (08:38)
[2018-03-14] MEDS: LINAGLIPTIN 5 MG TABLET PO (08:39)
[2018-03-14] MEDS: AMIODARONE 200 MG TAB PO ×2 (08:39→20:39)
[2018-03-14 09:38] LABS: ALANINE AMINOTRANSFERASE 55 IU/L (13-69); ALBUMIN 3.2 g/dl (3.3-4.9); ALBUMIN/GLOBULIN RATIO 0.91; ALKALINE PHOSPHATASE 317 IU/L (42-121); ANION GAP 13 (8-16); ASPARTATE AMINO TRANSFERASE 56 IU/L (15-46); BILIRUBIN,INDIRECT 2.1 mg/dl (0-1.1); BILIRUBIN,TOTAL 3.6 mg/dl (0.2-1.3); BLOOD UREA NITROGEN 56 mg/dl (7-20); CALCIUM 7.9 mg/dl (8.4-10.2); CARBON DIOXIDE 30 mmol/L (21-31); CHLORIDE 103 mmol/L (97-110); CREATININE 1.33 mg/dl (0.61-1.24); GLUCOSE 66 mg/dl (70-220); SODIUM 143 mmol/L (135-144); TOTAL PROTEIN 6.7 g/dl (6.1-8.1)
[2018-03-14 09:40] LABS: B-TYPE NATRIURETIC PEPTIDE 6820 PG/ML (0-450)
[2018-03-14 09:44] LABS: MAGNESIUM 2.8 mg/dl (1.7-2.5)
[2018-03-14 09:44] LABS: PHOSPHORUS 3.9 mg/dl (2.5-4.9)
[2018-03-14 09:51] LABS: POTASSIUM 2.9 mmol/L (3.5-5.1)
[2018-03-14] MEDS: POTASSIUM CHLORIDE 100 ML IVPB (13:18)
[2018-03-14] MEDS: POTASSIUM CHLORIDE (SR) 20 MEQ TAB PO (15:48)
[2018-03-14] MEDS: INSULIN GLARGINE [LANtus] 3 ML PEN SC (20:41)
[2018-03-15] MEDS: ACCU-CHEK XX (02:00)
[2018-03-15 07:55] LABS: ABNORMAL IP MESSAGE 1; HEMATOCRIT 30.2 % (42.0-52.0); HEMOGLOBIN 9.9 g/dl (14.0-18.0); MEAN CORPUSCULAR HEMOGLOBIN 28.6 pg (29.0-33.0); MEAN CORPUSCULAR HGB CONC 32.8 g/dl (32.0-37.0); MEAN CORPUSCULAR VOLUME 87.3 fl (82.0-101.0); MEAN PLATELET VOLUME 9.9 fl (7.4-10.4); PLATELET COUNT 357 10^3/UL (140-415); POSITIVE DIFF @See below; RED BLOOD COUNT 3.46 10^6/ul (4.70-6.10); RED CELL DISTRIBUTION WIDTH 15.8 % (11.5-14.5)
[2018-03-15 07:55] LABS: WHITE BLOOD COUNT 11.9 10^3/ul (4.8-10.8)
[2018-03-15 08:00] LABS: ADD MAN DIFF? YES
[2018-03-15] MEDS: INSULIN ASPART [NOVOLOG] 3 ML PEN SC ×4 (08:00→20:24)
[2018-03-15 08:32] LABS: ALANINE AMINOTRANSFERASE 46 IU/L (13-69); ALBUMIN 3.3 g/dl (3.3-4.9); ALBUMIN/GLOBULIN RATIO 0.94; ALKALINE PHOSPHATASE 309 IU/L (42-121); ASPARTATE AMINO TRANSFERASE 61 IU/L (15-46); BILIRUBIN,INDIRECT 2.3 mg/dl (0-1.1); BILIRUBIN,TOTAL 3.3 mg/dl (0.2-1.3); BLOOD UREA NITROGEN 44 mg/dl (7-20); CALCIUM 7.2 mg/dl (8.4-10.2); CARBON DIOXIDE 28 mmol/L (21-31); CHLORIDE 102 mmol/L (97-110); CREATININE 1.14 mg/dl (0.61-1.24); GLUCOSE 81 mg/dl (70-220); SODIUM 140 mmol/L (135-144); TOTAL PROTEIN 6.8 g/dl (6.1-8.1)
[2018-03-15] MEDS: AMIODARONE 200 MG TAB PO ×2 (08:35→20:14)
[2018-03-15] MEDS: CLOPIDOGREL 75 MG TAB PO (08:35)
[2018-03-15] MEDS: METOPROLOL (XL) 50 MG TAB PO (08:35)
[2018-03-15] MEDS: ASPIRIN 81 MG TAB PO (08:35)
[2018-03-15] MEDS: LINAGLIPTIN 5 MG TABLET PO (08:36)
[2018-03-15 08:37] LABS: ANION GAP 13 (8-16); POTASSIUM 3.2 mmol/L (3.5-5.1)
[2018-03-15 08:40] LABS: PHOSPHORUS 2.8 mg/dl (2.5-4.9)
[2018-03-15 08:40] LABS: MAGNESIUM 2.9 mg/dl (1.7-2.5)
[2018-03-15 09:06] LABS: ALANINE AMINOTRANSFERASE 52 IU/L (13-69); ALBUMIN 2.9 g/dl (3.3-4.9); ALKALINE PHOSPHATASE 312 IU/L (42-121); ASPARTATE AMINO TRANSFERASE 51 IU/L (15-46); BILIRUBIN,INDIRECT 2.3 mg/dl (0-1.1); BILIRUBIN,TOTAL 3.3 mg/dl (0.2-1.3)
[2018-03-15 09:19] LABS: ANISOCYTOSIS 1+ (0-0); BAND NEUTROPHILS #M 0.3 10^3/ul (0.0-0.6); BAND NEUTROPHILS % (M) 3 % (0-4); BASOPHIL #M 0.1 10^3/ul (0.0-0.0); BASOPHILS % (M) 1 % (0-2); HYPOCHROMASIA 1+ (0-0); LYMPHOCYTES #M 1.6 10^3/ul (0.8-2.9); LYMPHOCYTES % (M) 14 % (15-51); METAMYELOCYTES #M 0.1 10^3/ul (0.0-0.0); METAMYELOCYTES %M 1 % (0-0); MICROCYTOSIS 1+ (0-0); MONOCYTE #M 0.8 10^3/ul (0.3-0.9); MONOCYTES % (M) 7 % (0-11); PLATELET ESTIMATE NORMAL; POLYCHROMASIA 3+ (0-0); SEG NEUT #M 8.8 10^3/ul (1.6-7.5); SEGMENTED NEUTROPHILS (M) % 74 % (39-77); SMUDGE%M 2 % (0-0)
[2018-03-15] MEDS: POTASSIUM CHLORIDE (SR) 20 MEQ TAB PO (10:45)
[2018-03-15] MEDS: INSULIN GLARGINE [LANtus] 3 ML PEN SC (20:22)
[2018-03-15] MEDS: ATORVASTATIN 80 MG TAB PO (20:23)
[2018-03-16] MEDS: ACCU-CHEK XX (02:00)
[2018-03-16] MEDS: INSULIN ASPART [NOVOLOG] 3 ML PEN SC ×3 (08:00→17:23)
[2018-03-16] MEDS: LINAGLIPTIN 5 MG TABLET PO (08:53)
[2018-03-16] MEDS: CLOPIDOGREL 75 MG TAB PO (08:53)
[2018-03-16] MEDS: AMIODARONE 200 MG TAB PO (08:53)
[2018-03-16] MEDS: ASPIRIN 81 MG TAB PO (08:53)
[2018-03-16] MEDS: METOPROLOL (XL) 50 MG TAB PO (08:54)
[2018-03-16 09:03] LABS: ADD MAN DIFF? NO
[2018-03-16 09:09] LABS: ABNORMAL IP MESSAGE 1; BASOPHILS % 0.3 % (0.0-2.0); EOSINOPHILS # 0.1 10^3/ul (0.0-0.5); EOSINOPHILS % 0.7 % (0.0-7.0); HEMOGLOBIN 10.6 g/dl (14.0-18.0); LYMPHOCYTES # 0.9 10^3/ul (0.8-2.9); LYMPHOCYTES % 8.1 % (15.0-51.0); MEAN CORPUSCULAR HEMOGLOBIN 28.9 pg (29.0-33.0); MEAN CORPUSCULAR HGB CONC 33.1 g/dl (32.0-37.0); MEAN CORPUSCULAR VOLUME 87.2 fl (82.0-101.0); MEAN PLATELET VOLUME 9.6 fl (7.4-10.4); MONOCYTE # 0.7 10^3/ul (0.3-0.9); MONOCYTES % 6.7 % (0.0-11.0); NEUTROPHIL # 8.7 10^3/ul (1.6-7.5); NEUTROPHILS % 78.9 % (39.0-77.0); PLATELET COUNT 423 10^3/UL (140-415); POSITIVE DIFF @See below; RED BLOOD COUNT 3.67 10^6/ul (4.70-6.10); RED CELL DISTRIBUTION WIDTH 15.6 % (11.5-14.5)
[2018-03-16 15:21] LABS: ANION GAP 11 (8-16); BLOOD UREA NITROGEN 28 mg/dl (7-20); CALCIUM 7.5 mg/dl (8.4-10.2); CARBON DIOXIDE 30 mmol/L (21-31); CHLORIDE 102 mmol/L (97-110); CREATININE 1.08 mg/dl (0.61-1.24); GLUCOSE 136 mg/dl (70-220); POTASSIUM 4.2 mmol/L (3.5-5.1); SODIUM 139 mmol/L (135-144)
== END 2018-03-16 18:20 | disposition home health service (06) | DRG 231 ==
LOC: SDS 03-04 01:08 → MS4 03-12 05:48 → ICU 03-04 01:08 → E/R 23:16 → TEL 03-11 21:56 → SDS 23:37
PROC: 02703ZZ Dilation of Coronary Artery, One Artery, Percutaneous Approach (ICD-10-PCS; principal; 2018-03-03)
PROC: 0210099 Bypass Coronary Artery, One Artery from Left Internal Mammary with Autologous Venous Tissue, Open Approach (ICD-10-PCS; 2018-03-03)
PROC: 021109W Bypass Coronary Artery, Two Arteries from Aorta with Autologous Venous Tissue, Open Approach (ICD-10-PCS; 2018-03-03)
PROC: 06BQ4ZZ Excision of Left Saphenous Vein, Percutaneous Endoscopic Approach (ICD-10-PCS; 2018-03-03)
PROC: 5A02210 Assistance with Cardiac Output using Balloon Pump, Continuous (ICD-10-PCS; 2018-03-03)
PROC: 4A023N7 Measurement of Cardiac Sampling and Pressure, Left Heart, Percutaneous Approach (ICD-10-PCS; 2018-03-03)
PROC: B211YZZ Fluoroscopy of Multiple Coronary Arteries using Other Contrast (ICD-10-PCS; 2018-03-03)
PROC: B215YZZ Fluoroscopy of Left Heart using Other Contrast (ICD-10-PCS; 2018-03-03)
PROC: 30233R1 Transfusion of Nonautologous Platelets into Peripheral Vein, Percutaneous Approach (ICD-10-PCS; 2018-03-03)
PROC: 30233N1 Transfusion of Nonautologous Red Blood Cells into Peripheral Vein, Percutaneous Approach (ICD-10-PCS; 2018-03-03)
PROC: 30233K1 Transfusion of Nonautologous Frozen Plasma into Peripheral Vein, Percutaneous Approach (ICD-10-PCS; 2018-03-03)
DX: I21.19 ST elevation (STEMI) myocardial infarction involving other coronary artery of inferior wall (principal); I50.21 Acute systolic (congestive) heart failure; J96.01 Acute respiratory failure with hypoxia; I47.2 Ventricular tachycardia; N17.9 Acute kidney failure, unspecified; E11.65 Type 2 diabetes mellitus with hyperglycemia; I11.0 Hypertensive heart disease with heart failure; I48.0 Paroxysmal atrial fibrillation; R55 Syncope and collapse; D64.9 Anemia, unspecified; I25.10 Atherosclerotic heart disease of native coronary artery without angina pectoris; I25.5 Ischemic cardiomyopathy; E87.6 Hypokalemia; F10.21 Alcohol dependence, in remission; Z87.891 Personal history of nicotine dependence; Z79.4 Long term (current) use of insulin; Z79.82 Long term (current) use of aspirin; Z79.02 Long term (current) use of antithrombotics/antiplatelets
CPT/HCPCS: 36415; 36430; 36592; 36600; 71045; 80048; 80053; 80061; 80076; 82550; 82553; 82803; 82962; 83036; 83735; 83880; 84100; 84132; 84443; 84484; 85014; 85025; 85610; 85730; 86850; 86900; 86901; 86920; 86945; 92526; 92610; 92920; 93005; 93306; 93312; 93325; 93880; 94002; 94003; 94770; 97110; 97116; 97163; 97530; 99291-25; J2001